=== PATIENT | male | born 1945 | race Caucasian/White ===

== ENCOUNTER 2017-09-15 14:50 | Emergency (ER) | payer OTHER ==
[2017-09-15 15:33] LABS: BASOPHILS % (AUTO) 0.9 % (0.0-5.0); EOSINOPHILS % (AUTO) 6.3 % (0.0-8.0); HEMATOCRIT 41.7 % (42-54); LYMPHOCYTES % (AUTO) 33.7 % (21.0-51.0); MEAN CORPUSCULAR HEMOGLOBIN 30.7 pg (27.0-33.0); MEAN CORPUSCULAR HGB CONC 33.9 g/dL (32.0-36.0); MEAN CORPUSCULAR VOLUME 90.7 fL (79-99); MONOCYTES % (AUTO) 7.6 % (3.0-13.0); NEUTROPHILS % (AUTO) 51.5 % (40.0-77.0); NUCLEATED RED BLOOD CELLS 0.1 % (0.0-0.19); PLATELET COUNT (AUTO) 177 K/uL (130-400); RED CELL DISTRIBUTION WIDTH 13.8 % (11.0-15.5); WHITE BLOOD COUNT (AUTO) 7.4 K/uL (4.8-10.8)
[2017-09-15 15:43] LABS: CARBON DIOXIDE 30 mmol/L (21-32); CHLORIDE 97 mmol/L (101-111); CREATININE 1.3 mg/dL (0.5-1.5); GLOMERULAR FILTR. RATE CALC 58 mL/min (>60); GLUCOSE,RANDOM 219 mg/dL (70-105); POTASSIUM 4.1 mmol/L (3.5-5.1); SODIUM SERUM 137 mmol/L (136-145); UREA NITROGEN, BLOOD 19 mg/dL (7-18)
[2017-09-15 15:44] LABS: INR 0.98 (0.85-1.15); PARTIAL THROMBOPLASTIN TIME 24.2 SEC (26.3-35.5); PROTHROMBIN TIME 10.3 SEC (9.6-11.6)
[2017-09-15 15:55] LABS: ALANINE AMINOTRANSFERASE 28 U/L (12-78); ALBUMIN 4.4 g/dL (3.5-5.0); ASPARTATE AMINOTRANSFERASE 16 U/L (10-37); BILIRUBIN,TOTAL 0.5 mg/dL (0.2-1.0); CREATINE KINASE MB < 0.5 ng/mL (0.5-3.6); CREATINE KINASE, TOTAL 55 U/L (21-232); LIPASE 187 U/L (114-286); TOTAL PROTEIN, SERUM 8.5 g/dL (6.0-8.3)
== END 2017-09-15 19:54 | disposition home or self-care (01) ==
LOC: EDH 14:50
DX: R10.9 Unspecified abdominal pain (principal); R32 Unspecified urinary incontinence; E11.9 Type 2 diabetes mellitus without complications; I10 Essential (primary) hypertension; H40.9 Unspecified glaucoma; E78.5 Hyperlipidemia, unspecified; J44.9 Chronic obstructive pulmonary disease, unspecified; Z88.8 Allergy status to other drugs, medicaments and biological substances
CPT/HCPCS: 36415; 74176; 80053; 82550; 82553; 83690; 84484; 85025; 85610; 85730; 93005

== ENCOUNTER 2017-10-18 04:16 | Emergency (ER) | payer OTHER ==
[2017-10-18 05:00] LABS: BASOPHILS % (AUTO) 0.9 % (0.0-5.0); EOSINOPHILS % (AUTO) 5.2 % (0.0-8.0); HEMATOCRIT 40.2 % (42-54); LYMPHOCYTES % (AUTO) 42.1 % (21.0-51.0); MEAN CORPUSCULAR HEMOGLOBIN 31.1 pg (27.0-33.0); MEAN CORPUSCULAR HGB CONC 34.2 g/dL (32.0-36.0); MONOCYTES % (AUTO) 9.9 % (3.0-13.0); NEUTROPHILS % (AUTO) 41.9 % (40.0-77.0); NUCLEATED RED BLOOD CELLS 0.1 % (0.0-0.19); PLATELET COUNT (AUTO) 172 K/uL (130-400); RED BLOOD CELL COUNT(AUTO) 4.41 MIL/uL (4.50-6.20); RED CELL DISTRIBUTION WIDTH 14.9 % (11.0-15.5); WHITE BLOOD COUNT (AUTO) 6.8 K/uL (4.8-10.8)
[2017-10-18 05:10] LABS: INR 0.99 (0.85-1.15); PARTIAL THROMBOPLASTIN TIME 25.9 SEC (26.3-35.5); PROTHROMBIN TIME 10.4 SEC (9.6-11.6)
[2017-10-18 05:12] LABS: CREATININE 1.2 mg/dL (0.5-1.5); POTASSIUM 4.2 mmol/L (3.5-5.1)
[2017-10-18 05:16] LABS: ALBUMIN 3.9 g/dL (3.5-5.0); BILIRUBIN,TOTAL 0.4 mg/dL (0.2-1.0); TOTAL PROTEIN, SERUM 7.4 g/dL (6.0-8.3)
== END 2017-10-18 07:40 | disposition home or self-care (01) ==
LOC: EDH 04:16
DX: I86.1 Scrotal varices (principal); J44.9 Chronic obstructive pulmonary disease, unspecified; E11.9 Type 2 diabetes mellitus without complications; E78.5 Hyperlipidemia, unspecified; I10 Essential (primary) hypertension; H40.9 Unspecified glaucoma; R79.1 Abnormal coagulation profile; Z88.8 Allergy status to other drugs, medicaments and biological substances
CPT/HCPCS: 36415; 80053; 85025; 85610; 85730

== ENCOUNTER 2018-05-17 19:41 | Emergency (ER) | payer OTHER ==
[2018-05-17 20:39] LABS: BASOPHILS % (AUTO) 0.2 % (0.0-5.0); HEMATOCRIT 44.3 % (42-54); LYMPHOCYTES % (AUTO) 7.5 % (21.0-51.0); MEAN CORPUSCULAR HEMOGLOBIN 30.4 pg (27.0-33.0); MEAN CORPUSCULAR HGB CONC 32.6 g/dL (32.0-36.0); MEAN CORPUSCULAR VOLUME 93.1 fL (79-99); MONOCYTES % (AUTO) 6.3 % (3.0-13.0); PLATELET COUNT (AUTO) 165 K/uL (130-400); RED BLOOD CELL COUNT(AUTO) 4.76 MIL/uL (4.50-6.20); RED CELL DISTRIBUTION WIDTH 14.1 % (11.0-15.5); WHITE BLOOD COUNT (AUTO) 8.9 K/uL (4.8-10.8)
[2018-05-17 20:52] LABS: CARBON DIOXIDE 26 mmol/L (21-32); CHLORIDE 104 mmol/L (101-111); CREATININE 1.9 mg/dL (0.5-1.5); GLOMERULAR FILTR. RATE CALC 37 mL/min (>60); GLUCOSE,RANDOM 187 mg/dL (70-105); POTASSIUM 5.1 mmol/L (3.5-5.1); SODIUM SERUM 141 mmol/L (136-145); UREA NITROGEN, BLOOD 30 mg/dL (7-18)
[2018-05-17 20:57] LABS: INR 1.04 (0.85-1.15); PARTIAL THROMBOPLASTIN TIME 29.2 SEC (26.3-35.5); PROTHROMBIN TIME 10.9 SEC (9.6-11.6)
[2018-05-17 21:03] LABS: BAND NEUTROPHILS % (MANUAL) 8 % (0-2); EOSINOPHILS % (MANUAL) 1 % (1-6); LYMPHOCYTES % (MANUAL) 10 % (22-44); MAN.DIFF COMMENT-IMPRESSION MANUAL DIFFERENTIAL; MONOCYTES % (MANUAL) 6 % (2-9); SEGMENTED NEUTROPHILS % 75 % (40-70)
[2018-05-17 21:18] LABS: ALANINE AMINOTRANSFERASE 34 U/L (12-78); ALBUMIN 3.9 g/dL (3.5-5.0); ASPARTATE AMINOTRANSFERASE 24 U/L (10-37); BILIRUBIN,TOTAL 0.6 mg/dL (0.2-1.0); MYOGLOBIN 2063 ng/mL (10-92); TROPONIN I < 0.04 ng/mL (0.00-0.06)
[2018-05-17 21:19] LABS: CREATINE KINASE, TOTAL 441 U/L (21-232)
== END 2018-05-18 00:14 | disposition home or self-care (01) ==
LOC: EDH 19:41
DX: A08.4 Viral intestinal infection, unspecified (principal); E86.0 Dehydration; R53.83 Other fatigue; J44.9 Chronic obstructive pulmonary disease, unspecified; E78.5 Hyperlipidemia, unspecified; I10 Essential (primary) hypertension; E07.9 Disorder of thyroid, unspecified; K21.9 Gastro-esophageal reflux disease without esophagitis; Z88.8 Allergy status to other drugs, medicaments and biological substances
CPT/HCPCS: 36415; 70450; 71045; 80053; 82550; 83605; 83874; 84484; 85025; 85610; 85730; 87040; 93005; 96360

== ENCOUNTER 2020-06-22 10:02 | Inpatient (IN) | payer MEDICARE, OTHER ==
[~2020-06-22] VITALS: Ht 182.9 cm; Wt 118.4 kg
[~2020-06-22 10:02] MED LIST: APIX5TAB PO; ASPI-556 PO; ATOR40TA71 PO; CYAN100099 PO; DONE10TA43 PO; DULO20CA18 PO; GLIP10TA9 PO; LEVO500T89 PO; LEVO88TA7 PO; LISI2.5T2 PO; MELA5TAB14 PO; METF-446 PO; MULT-84 PO; POTA-79 PO; TRAZ-185 PO
[2020-06-22] MEDS ORDERED: ACETAMINOPHEN 650 MG SUPPOSITORY RC ONE ×2 (10:33→15:29)
[2020-06-22] MEDS ORDERED: SODIUM CHLORIDE 0.9% 1000ML 2,000 ML IV ONE (10:34)
[2020-06-22] MEDS ORDERED: SODIUM CHLORIDE 0.9% 500ML 500 ML IV ONE (10:34)
[2020-06-22 10:58] LABS: ABG BASE EXCESS -2.1 mmol/L (-2.0-3.0); ABG HCO3 22.7 mmol/L (21.0-28.0); ABG OXYGEN SATURATION 99.1 % (95.0-99.0); ABG PCO2 39 mmHg (35-48)
[2020-06-22 11:11] LABS: APPEARANCE,URINE Clear (CLEAR); BILIRUBIN,URINE Negative (NEGATIVE); COLOR,URINE Yellow (YELLOW); GLUCOSE, URINE (UA) Negative (NEGATIVE); KETONES,URINE Negative (NEGATIVE); LEUKOCYTE ESTERASE ,URINE Moderate (NEGATIVE); NITRATE,URINE Negative (NEGATIVE); OCCULT BLOOD,URINE Small (NEGATIVE); PROTEIN,URINE Negative (NEGATIVE); UROBILINOGEN,URINE 0.2 mg/dL (0.2-1.0)
[2020-06-22 11:19] LABS: BASOPHILS % (AUTO) 0.3 % (0.0-5.0); EOSINOPHILS % (AUTO) 1.3 % (0.0-8.0); HEMATOCRIT 39.9 % (42-54); LYMPHOCYTES % (AUTO) 7.3 % (21.0-51.0); MEAN CORPUSCULAR HEMOGLOBIN 30.1 pg (27.0-33.0); MEAN CORPUSCULAR HGB CONC 32.3 g/dL (32.0-36.0); MEAN CORPUSCULAR VOLUME 93.2 fL (79-99); MONOCYTES % (AUTO) 8.2 % (3.0-13.0); NEUTROPHILS % (AUTO) 82.4 % (40.0-77.0); PLATELET COUNT (AUTO) 148 K/uL (130-400); RED BLOOD CELL COUNT(AUTO) 4.28 MIL/uL (4.50-6.20); RED CELL DISTRIBUTION WIDTH 13.3 % (11.0-15.5); WHITE BLOOD COUNT (AUTO) 15.4 K/uL (4.8-10.8)
[2020-06-22 11:23] LABS: CARBON DIOXIDE 27 mmol/L (21-32); CHLORIDE 105 mmol/L (101-111); CREATININE 1.4 mg/dL (0.5-1.5); GLOMERULAR FILTR. RATE CALC 53 mL/min (>60); GLUCOSE,RANDOM 98 mg/dL (70-105); POTASSIUM 4.3 mmol/L (3.5-5.1); SODIUM SERUM 142 mmol/L (136-145); UREA NITROGEN, BLOOD 27 mg/dL (7-18)
[2020-06-22 11:32] LABS: INR 1.12 (0.85-1.15); PARTIAL THROMBOPLASTIN TIME 23.1 SEC (26.3-35.5)
[2020-06-22 11:42] LABS: BACTERIA,URINE Few /HPF (None Seen); MUCUS,URINE Rare LPF (None Seen); SQUAMOUS EPITHELIAL CELL,UR Rare /HPF (0-2); WBC,URINE 26-50 /HPF (0-1)
[2020-06-22 11:44] LABS: ALANINE AMINOTRANSFERASE 30 U/L (12-78); ALBUMIN 4.1 g/dL (3.5-5.0); ASPARTATE AMINOTRANSFERASE 18 U/L (10-37); BILIRUBIN,TOTAL 0.6 mg/dL (0.2-1.0); CREATINE KINASE, TOTAL 69 U/L (21-232); MYOGLOBIN 58 ng/mL (10-92); TOTAL PROTEIN, SERUM 7.5 g/dL (6.0-8.3); TROPONIN I < 0.04 ng/mL (0.00-0.06)
[2020-06-22] MEDS ORDERED: CEFTRIAXONE SODIUM 2 GM VIAL ONE (12:13)
[2020-06-22] MEDS ORDERED: SODIUM CHLORIDE 0.9% 50 ML IV ONE (12:14)
[2020-06-22] MEDS ORDERED: ACETAMINOPHEN 325 MG TAB PO PRN (12:45)
[2020-06-22] MEDS ORDERED: CEFTRIAXONE SODIUM 1 GM IVP SCH (12:45)
[2020-06-22] MEDS ORDERED: HEPARIN SODIUM 5000UNIT/ML 1ML VIAL ONE (14:16)
[2020-06-22] MEDS ORDERED: ACETAMINOPHEN 650 MG SUPPOSITORY RC PRN (14:45)
[2020-06-22] MEDS ORDERED: GLUCAGON 1MG KIT 1 MG ML IM PRN (14:45)
[2020-06-22] MEDS ORDERED: DEXTROSE 50%-WATER 50 ML DISP.SYRIN IV PRN (14:45)
--- NOTE | 2020-06-22 16:20 | NUR ---
ARRIVED TOO FLOOR PT ARRIVED TO TELE. PT ANXIOUS AND NOT FOLLOWING COMMANDS. UNABLE TO VERBALIZE AT THE MOMENT. TEMPERATURE OF 101 NOTED AND JARRED TINEO NOTIFIED. NEXT OF KIN, JARRED SLATER, REPEATEDLY TRIED TO CONTACT. UNABLE TO GET A HOLD OF HER. WILL CONTINUE TO TRY. CONSULTS CALLED.
[2020-06-22] MEDS: SODIUM CHLORIDE 0.9% 1000ML 1,000 ML IV SCH (16:25)
[2020-06-22] MEDS: HEPARIN SODIUM 5000UNIT/ML 1ML VIAL SQ SCH ×2 (16:25→20:46)
[2020-06-22 16:30] VITALS: BP 109/62
[2020-06-22] MEDS: INSULIN HUMULIN R 100 UNIT/ML 3ML SQ SCH ×2 (16:30→20:46)
--- NOTE | 2020-06-22 18:04 | NUR ---
NEXT OF KIN JARRED SLATER CONTACTED AND UPDATED ON PT CONDITION. WILL FAX OVER HOME MEDS. PT RESIDENT OF [facility].
[2020-06-22] MEDS ORDERED: MELA1TAB28 PO (19:25)
[2020-06-22] MEDS ORDERED: CARB-37 PO (19:30)
[2020-06-22] MEDS ORDERED: ROPI1TAB13 PO (19:31)
[2020-06-22 20:09] VITALS: BP 127/81
[2020-06-22] MEDS ORDERED: TAMSULOSIN HCL 0.4 MG CAP.ER.24H PO SCH (21:00)
[2020-06-22 23:44] VITALS: BP 104/66
[2020-06-23] MEDS: SODIUM CHLORIDE 0.9% 1000ML 1,000 ML IV SCH (03:34)
[2020-06-23 03:43] VITALS: BP 149/90
[2020-06-23] MEDS: HEPARIN SODIUM 5000UNIT/ML 1ML VIAL SQ SCH ×3 (05:01→20:12)
[2020-06-23 05:17] LABS: BASOPHILS % (AUTO) 0.3 % (0.0-5.0); EOSINOPHILS % (AUTO) 0.1 % (0.0-8.0); HEMATOCRIT 35.2 % (42-54); LYMPHOCYTES % (AUTO) 12.8 % (21.0-51.0); MEAN CORPUSCULAR HEMOGLOBIN 30.5 pg (27.0-33.0); MEAN CORPUSCULAR HGB CONC 32.4 g/dL (32.0-36.0); MEAN CORPUSCULAR VOLUME 94.1 fL (79-99); MONOCYTES % (AUTO) 6.7 % (3.0-13.0); NEUTROPHILS % (AUTO) 79.8 % (40.0-77.0); PLATELET COUNT (AUTO) 125 K/uL (130-400); RED BLOOD CELL COUNT(AUTO) 3.74 MIL/uL (4.50-6.20); RED CELL DISTRIBUTION WIDTH 13.6 % (11.0-15.5); WHITE BLOOD COUNT (AUTO) 11.6 K/uL (4.8-10.8)
[2020-06-23] MEDS: INSULIN HUMULIN R 100 UNIT/ML 3ML SQ SCH ×4 (05:26→20:12)
[2020-06-23 05:34] LABS: ALBUMIN 3.4 g/dL (3.5-5.0); BILIRUBIN,TOTAL 0.6 mg/dL (0.2-1.0); CREATININE 1.4 mg/dL (0.5-1.5); TOTAL PROTEIN, SERUM 7.3 g/dL (6.0-8.3)
[2020-06-23 08:00] VITALS: BP 133/71
[2020-06-23] MEDS ORDERED: ZOLPIDEM TARTRATE 5 MG TAB PO PRN (08:15)
[2020-06-23] MEDS: FAMOTIDINE/PF 20 MG/2 ML VIAL IV SCH (09:18)
[2020-06-23] MEDS ORDERED: PROMETHAZINE HCL 25 MG/ML 1ML AMPULE IM PRN (11:15)
[2020-06-23] MEDS ORDERED: MORPHINE SULFATE 2 MG/ML 1ML SYG ONE (11:35)
[2020-06-23] MEDS: ONDANSETRON HCL 4 MG/2 ML VIAL IVP PRN (11:38)
[2020-06-23 12:16] VITALS: BP 97/57
[2020-06-23] MEDS: ZOSYN 3.375GM+NS 50ML 50 ML IV SCH ×2 (12:21→20:13)
--- NOTE | 2020-06-23 13:10 | NUR ---
DYSPHAGIA EVAL COMPLETED. -S/S OF ASPIRATION. RECOMMEND MECHANICAL SOFT/CHOPPED, THIN LIQUIDS; PILLS WHOLE WITH LIQUIDS. ULTRASOUND SUPERVISOR CALLED [facility] MAYELIN X3 AT [phone] WITH NO ANSWER AND UNABLE TO LEAVE MESSAGE VOICEMAIL IS FULL. ULTRASOUND SUPERVISOR LOOKED FOR NUMBER ONLINE-SAME NUMBER. ULTRASOUND SUPERVISOR COORDINATED CARE WITH NURSE TERESA. Addendum: 06/23/20 at 1312 by KHADAR BURRELL [facility] Amended: Links added.
[2020-06-23 16:00] VITALS: BP 162/71
--- NOTE | 2020-06-23 16:59 | NUR ---
IA NOT DONE. Phone number listed goes straight to voice mail.
[2020-06-23 19:57] VITALS: BP 108/63
[2020-06-23] MEDS: MORPHINE SULFATE 2 MG/ML 1ML SYG IVP PRN (20:14)
[2020-06-23 23:49] VITALS: BP 90/62
[2020-06-24] MEDS ORDERED: TAMSULOSIN HCL 0.4 MG CAP.ER.24H PO SCH (04:00)
[2020-06-24 04:07] VITALS: BP 111/54
[2020-06-24] MEDS: SODIUM CHLORIDE 0.9% 1000ML 1,000 ML IV SCH (04:45)
[2020-06-24] MEDS: ZOSYN 3.375GM+NS 50ML 50 ML IV SCH ×3 (05:12→20:37)
[2020-06-24] MEDS: HEPARIN SODIUM 5000UNIT/ML 1ML VIAL SQ SCH ×3 (05:12→20:40)
[2020-06-24] MEDS: MORPHINE SULFATE 2 MG/ML 1ML SYG IVP PRN (05:13)
[2020-06-24] MEDS: INSULIN HUMULIN R 100 UNIT/ML 3ML SQ SCH ×4 (06:49→20:37)
[2020-06-24 06:57] LABS: BASOPHILS % (AUTO) 0.7 % (0.0-5.0); EOSINOPHILS % (AUTO) 3.9 % (0.0-8.0); HEMATOCRIT 34.3 % (42-54); LYMPHOCYTES % (AUTO) 26.1 % (21.0-51.0); MEAN CORPUSCULAR HEMOGLOBIN 30.2 pg (27.0-33.0); MEAN CORPUSCULAR HGB CONC 31.2 g/dL (32.0-36.0); MEAN CORPUSCULAR VOLUME 96.9 fL (79-99); MONOCYTES % (AUTO) 13.2 % (3.0-13.0); NEUTROPHILS % (AUTO) 55.8 % (40.0-77.0); PLATELET COUNT (AUTO) 103 K/uL (130-400); RED BLOOD CELL COUNT(AUTO) 3.54 MIL/uL (4.50-6.20); RED CELL DISTRIBUTION WIDTH 13.7 % (11.0-15.5); WHITE BLOOD COUNT (AUTO) 7.2 K/uL (4.8-10.8)
[2020-06-24 07:22] LABS: ALBUMIN 3.2 g/dL (3.5-5.0); BILIRUBIN,TOTAL 0.5 mg/dL (0.2-1.0); CREATININE 1.4 mg/dL (0.5-1.5); POTASSIUM 4.4 mmol/L (3.5-5.1); TOTAL PROTEIN, SERUM 7.1 g/dL (6.0-8.3)
[2020-06-24] MEDS: FAMOTIDINE/PF 20 MG/2 ML VIAL IV SCH (09:27)
[2020-06-24] MEDS: TAMSULOSIN HCL 0.4 MG CAP.ER.24H PO SCH (09:27)
[2020-06-24 09:34] VITALS: BP 121/65
[2020-06-24] MEDS ORDERED: DULO60CA64 PO (11:51)
[2020-06-24] MEDS ORDERED: ATOR10 PO ×2 (11:52→11:59)
[2020-06-24] MEDS ORDERED: VITA1CAP85 PO (11:54)
[2020-06-24] MEDS ORDERED: POTA-9 PO (11:57)
[2020-06-24] MEDS ORDERED: QUET25TA PO (11:58)
[2020-06-24 13:01] VITALS: BP 120/66
--- NOTE | 2020-06-24 15:26 | NUR ---
CHRIS WHIPPLE/IA MET WITH PATIENT AND FRIEND, JARRED FOUNTAIN, AT BEDSIDE. PER JARRED, SHE IS FRIEND AND ALSO MEDICAL INFORMATION OFFICER OF [facility] WHERE PATIENT RESIDES. PER JARRED, PATIENT HAS HOSPITAL BED AND WHEELCHAIR AND NEEDS ASSISTANCE WITH ADLS. PATIENT DC PLAN IS ASSISTIVE LIVING AT PREVIOUS HOME. Addendum: 06/24/20 at 1529 by JO-ANN PRATT RN CM Amended: Links added.
[2020-06-24 16:00] VITALS: BP 116/52
--- NOTE | 2020-06-24 16:29 | NUR ---
RD NOTIFICATION Pt admitted with metabolic encephalopathy, UTI. Hx of Parkinson's. Pt is s/p ST evaluation, mechanical soft/chopped diet modification recommended. Pt tolerating 75gm CC modified diet with no report of GI distress and fair PO intake. Pt requires some feeding assistance. Recommend continue current diet order Recommend Glucerna QD Recommend to monitor renal status RD to continue to monitor. Please notify as additional nutrition concerns arise. Thank you.
[2020-06-24 20:34] VITALS: BP_SYST 119; BP_SYST 131; BP_DIAS 52; BP_DIAS 84
[2020-06-25] VITALS (7 sets, daily range): BP systolic 107–144; BP diastolic 56–77
[2020-06-25] MEDS: SODIUM CHLORIDE 0.9% 1000ML 1,000 ML IV SCH ×2 (00:18→20:40)
[2020-06-25] MEDS: HEPARIN SODIUM 5000UNIT/ML 1ML VIAL SQ SCH ×3 (04:29→21:21)
[2020-06-25] MEDS: ZOSYN 3.375GM+NS 50ML 50 ML IV SCH (04:32)
[2020-06-25] MEDS: INSULIN HUMULIN R 100 UNIT/ML 3ML SQ SCH ×4 (06:27→20:17)
[2020-06-25] MEDS: FAMOTIDINE/PF 20 MG/2 ML VIAL IV SCH ×3 (08:37→20:39)
[2020-06-25] MEDS: ONDANSETRON HCL 4 MG/2 ML VIAL IVP PRN (08:38)
[2020-06-25] MEDS: TAMSULOSIN HCL 0.4 MG CAP.ER.24H PO SCH (08:38)
[2020-06-25] MEDS ORDERED: BISACODYL 10 MG SUPP.RECT RC SCH (12:30)
[2020-06-25 12:59] LABS: HEMATOCRIT 39.1 % (42-54); MEAN CORPUSCULAR HEMOGLOBIN 30.3 pg (27.0-33.0); MEAN CORPUSCULAR VOLUME 94.7 fL (79-99); PLATELET COUNT (AUTO) 131 K/uL (130-400); RED BLOOD CELL COUNT(AUTO) 4.13 MIL/uL (4.50-6.20); RED CELL DISTRIBUTION WIDTH 13.4 % (11.0-15.5); WHITE BLOOD COUNT (AUTO) 6.2 K/uL (4.8-10.8)
[2020-06-25 13:22] LABS: ALBUMIN 3.8 g/dL (3.5-5.0); BILIRUBIN,TOTAL 0.5 mg/dL (0.2-1.0); CREATININE 1.3 mg/dL (0.5-1.5); POTASSIUM 4.3 mmol/L (3.5-5.1); TOTAL PROTEIN, SERUM 8.4 g/dL (6.0-8.3)
[2020-06-25 14:18] LABS: EOSINOPHILS % (MANUAL) 3 % (1-6); LYMPHOCYTES % (MANUAL) 32 % (22-44); MAN.DIFF COMMENT-IMPRESSION MANUAL DIFFERENTIAL; MONOCYTES % (MANUAL) 3 % (2-9); SEGMENTED NEUTROPHILS % 62 % (40-70)
[2020-06-25 14:20] LABS: PLATELET MORPHOLOGY COMMENT ADEQUATE
[2020-06-25] MEDS: AMPICILLIN 2GM+NS 100ML 100 ML IV SCH ×2 (14:31→20:40)
--- NOTE | 2020-06-25 15:11 | NUR ---
FOLLOW UP. Pt CURRENTLY NPO SECONDARY TO VOMITING THIS AM AFTER BREAKFAST. NO FOOD OR LIQUIDS PROVIDED AT THIS TIME. DIRECTOR OF CONTRACTS WILL FOLLOW UP WITH PATIENT. Addendum: 06/25/20 at 1516 by KHADAR BURRELL, [facility] Amended: Links added.
[2020-06-25] MEDS: SIMETHICONE 80 MG TAB.CHEW PO SCH (20:40)
--- NOTE | 2020-06-26 03:19 | NUR ---
REFUSED LABS PATIENT REFUSED TO HAVE AM LABS DRAWN AT THIS TIME. STATED "IF DOCTOR WANTS BLOOD HE CAN COME DRAW ME". EXPLAINED TO PATIENT IMPORTANCE OF MORNING LABS, PATIENT STILL REFUSED.
[2020-06-26 04:01] VITALS: BP 139/71
[2020-06-26] MEDS: AMPICILLIN 2GM+NS 100ML 100 ML IV SCH ×5 (05:04→23:56)
[2020-06-26] MEDS: HEPARIN SODIUM 5000UNIT/ML 1ML VIAL SQ SCH ×3 (05:09→20:09)
[2020-06-26] MEDS: INSULIN HUMULIN R 100 UNIT/ML 3ML SQ SCH ×4 (06:33→21:00)
[2020-06-26 08:00] VITALS: BP 140/68
[2020-06-26] MEDS ORDERED: POTASSIUM CHLORIDE 10% ELIXIR 20 MEQ/15 ML UDCUP PO PRN (08:15)
[2020-06-26] MEDS: SIMETHICONE 80 MG TAB.CHEW PO SCH ×3 (08:17→20:07)
[2020-06-26] MEDS: FAMOTIDINE/PF 20 MG/2 ML VIAL IV SCH (08:17)
[2020-06-26] MEDS: TAMSULOSIN HCL 0.4 MG CAP.ER.24H PO SCH (08:17)
[2020-06-26] MEDS: FAMOTIDINE 20MG TAB 20 MG TAB PO SCH ×2 (09:00→20:07)
[2020-06-26 12:03] VITALS: BP 134/66
--- NOTE | 2020-06-26 15:47 | NUR ---
CM NOTE/ELHAM MET WITH PATIENT IN ROOM. INFORMED PATIENT OF ORDER FOR [facility]. RAD COMPLETED FOR ELHAM. CONVERSATION WENT ON, PATIENT STARTED CRYING AND STATED HE DID NOT WANT TO GO BACK TO HIS SENIOR LIVING, [facility]. 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 NOTED LONG VILLAVICENCIO AND HAIR ON PATIENT. PATIENT CRYING AND STATING HE FEEL LIKE PEOPLE DON'T LISTEN TO HIM AND DONT EXPLAIN CARE FOR HIM D/T HIS DIAGNOSIS AND FORGETFULLNESS. INFORMED CINDER CRANE OPERATOR, VERNA GAR, ABOUT CONCERNS. ORDER FOR MUSHROOM CUTTER PLACED TO ASSESS HOME ENVIRONMENT. CM TO FOLLOW UP FOR [facility] REFERRAL.
[2020-06-26 16:00] VITALS: BP 125/63
--- NOTE | 2020-06-26 16:30 | NUR ---
NED visited pt's room, pt. gone to procedure; unable to meet w/pt. SW will request weekend CM f/u.
[2020-06-26 20:00] VITALS: BP 131/69
--- NOTE | 2020-06-26 21:47 | NUR ---
patient keeps taking off his quality assurance monitor chassis and refuses his medications including heparin. he also refuses blood sugar checks and vital signs. i tried contacting [facility] Claire Young at [phone]. i could not reach anybody from the [facility]. i called raj sharma to let him know. he ordered to discontinue quality assurance monitor chassis.
[2020-06-26] MEDS: SODIUM CHLORIDE 0.9% 1000ML 1,000 ML IV SCH (23:56)
[2020-06-27] VITALS: BP 142/69
[2020-06-27] MEDS: HEPARIN SODIUM 5000UNIT/ML 1ML VIAL SQ SCH ×5 (03:04→19:51)
[2020-06-27 04:00] VITALS: BP 137/77
[2020-06-27] MEDS: AMPICILLIN 2GM+NS 100ML 100 ML IV SCH ×6 (04:33→23:20)
--- NOTE | 2020-06-27 04:35 | NUR ---
PATIENT REFUSED MORNING LAB DRAW ALONG WITH HIS OTHER MEDICATIONS.
[2020-06-27] MEDS: INSULIN HUMULIN R 100 UNIT/ML 3ML SQ SCH ×5 (05:21→18:54)
[2020-06-27 08:13] VITALS: BP 128/63
--- NOTE | 2020-06-27 09:00 | NUR ---
IV PT ACCIDENTALLY PULLED OUT IV WHILE SLEEPING. CATHETER TIP INTACT. PT REFUSING TO HAVE ANOTHER IV INSERTED. EXPLAINED TO PT NEED FOR IV ACCESS. PT ON IV ABX Q6H. PT CONTINUES TO HAVE IV INSERTED. MD TO BE NOTIFIED. WHILE REFUSING IV, PT STATES, "YOU ARE ALL LYING TO ME. I JUST WANT TO GO HOME, TO [facility]."
[2020-06-27] MEDS: FAMOTIDINE 20MG TAB 20 MG TAB PO SCH ×2 (09:38→18:53)
[2020-06-27] MEDS: SIMETHICONE 80 MG TAB.CHEW PO SCH ×3 (09:38→18:53)
[2020-06-27] MEDS: TAMSULOSIN HCL 0.4 MG CAP.ER.24H PO SCH (09:38)
[2020-06-27 12:00] VITALS: BP 132/70
[2020-06-27] MEDS: SODIUM CHLORIDE 0.9% 1000ML 1,000 ML IV SCH ×2 (12:28→18:54)
[2020-06-27 16:14] VITALS: BP 120/68
--- NOTE | 2020-06-27 19:00 | NUR ---
spoke with antwan cuello [facility] on the phone. she asked me about the patient (if the patient had an IV, isolation, 1:1 observer, antibiotics, picc line, etc). I explained the situation and she verbalized understanding.
[2020-06-27 20:46] VITALS: BP 133/69
[2020-06-28] VITALS (7 sets, daily range): BP systolic 127–143; BP diastolic 63–73
--- NOTE | 2020-06-28 00:37 | NUR ---
patient continues to refuse his medications. he pulled out his IV catheter in the day. however, he allowed me to place another iv catheter at 20:00. he refuses blood sugar checks, lab draws, and some medications. he continues to say that he does not want to go to [facility]. he would like to go back to [facility] home. i spoke with antwan, from [facility], and told her.
[2020-06-28] MEDS: HEPARIN SODIUM 5000UNIT/ML 1ML VIAL SQ SCH ×3 (04:01→19:56)
[2020-06-28] MEDS: AMPICILLIN 2GM+NS 100ML 100 ML IV SCH ×4 (04:22→23:40)
[2020-06-28] MEDS: MORPHINE SULFATE 2 MG/ML 1ML SYG IVP PRN (04:27)
[2020-06-28] MEDS: SODIUM CHLORIDE 0.9% 1000ML 1,000 ML IV SCH (05:26)
[2020-06-28] MEDS: SIMETHICONE 80 MG TAB.CHEW PO SCH ×3 (08:40→19:55)
[2020-06-28] MEDS: FAMOTIDINE 20MG TAB 20 MG TAB PO SCH ×2 (08:41→19:56)
[2020-06-28] MEDS: TAMSULOSIN HCL 0.4 MG CAP.ER.24H PO SCH (08:41)
--- NOTE | 2020-06-28 08:45 | NUR ---
AM ASSESSMENT PT LAYING IN BED, RESTING. A/O 2-3; FORGETFUL @ TIMES. SOB ON EXERTION. NO DISTRESS NOTED. DENIES CHEST PAIN OR DISCOMFORT. DENIES PALPITATIONS. DENIES N/V AND/OR DIARRHEA. 18 FR FC PATENT & DRAINING. BLE EDEMA. BEDREST. INSTRUCTED TO CALL FOR ASSISTANCE. CALL CHICHO W/IN REACH.
--- NOTE | 2020-06-28 10:37 | NUR ---
MD VISIT DR ARGUELLO IN TO SEE PT. EXPLAINED TO PT NEED TO BE TRANSFERRED TO [facility], IV ABX THERAPY NEEDED, & CURRENT URINE & BLOOD INFECTIONS. QUESTIONS ENCOURAGED & CLARIFIED BY MD.
[2020-06-28] MEDS: INSULIN HUMULIN R 100 UNIT/ML 3ML SQ SCH ×3 (11:30→21:00)
[2020-06-29 04:00] VITALS: BP 136/63
[2020-06-29] MEDS: HEPARIN SODIUM 5000UNIT/ML 1ML VIAL SQ SCH ×3 (04:09→19:35)
[2020-06-29] MEDS: AMPICILLIN 2GM+NS 100ML 100 ML IV SCH ×4 (05:36→23:31)
[2020-06-29] MEDS: INSULIN HUMULIN R 100 UNIT/ML 3ML SQ SCH ×4 (05:46→21:00)
[2020-06-29] MEDS: FAMOTIDINE 20MG TAB 20 MG TAB PO SCH ×2 (08:10→21:50)
[2020-06-29] MEDS: TAMSULOSIN HCL 0.4 MG CAP.ER.24H PO SCH (08:10)
[2020-06-29] MEDS: SIMETHICONE 80 MG TAB.CHEW PO SCH ×3 (08:11→21:50)
[2020-06-29 08:33] VITALS: BP 141/74
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
[2020-06-29 11:15] VITALS: BP 145/64
--- NOTE | 2020-06-29 13:35 | NUR ---
FOLLOW UP COMPLETED. Pt CURRENTLY TOLERATING MECHANICAL SOFT/CHOPPED,THIN LIQUIDS; PILLS WHOLE WITH LIQUIDS WITH NO OVERT S/S OF ASPIRATION. Pt REQUIRES ASSISTANCE DURING FEEDING SECONDARY TO SHAKING DUR TO PARKINSON'S DISEASE. APPLICATION SPEC COORDINATED WITH NURSE COOPER AT THIS TIME. Addendum: 06/29/20 at 1337 by KHADAR BURRELL, [facility] ST Amended: Links added.
[2020-06-29 14:36] LABS: INR 1.03 (0.85-1.15); PROTHROMBIN TIME 11.1 SEC (9.6-11.6)
[2020-06-29 14:57] LABS: CREATININE 1.2 mg/dL (0.5-1.5); POTASSIUM 3.5 mmol/L (3.5-5.1)
--- NOTE | 2020-06-29 16:46 | NUR ---
DISCHARGE PLANNING- CHANGES REQUEST SANDRITA HUTTON TO EXPEDITE DISCHARGE AND RE EVAL SUITABILITY FOR [facility]. SPOKE TO FERTILIZER LOADER JARRED AT [facility], EXPLAINED PATIENT NEED 3 WEEKS TOTAL ABX FOR BACTEREMIA AND UTI; PER DR. Roca IN AGREEMENT WITH SAME. ALSO PROVIDED NUMBER FOR VLADISLAV BARROW MUSER; CM CALLED. NO ANSWER -PENDING RETURN CALL. PATIENT WAS AAOX3 AND AGREED TO PLACEMENT AT [place] FOR ABX. PENDING PICC. NO CONSENT FOR PICC EARLIER FROM PATIENT NO PT EVAL- NEED OK FOR PT EVAL. ALSO REFERRAL PKT SENT WILL FOLOW UP IN AM Addendum: 06/29/20 at 1653 by CURT BAEZ RN CM Amended: Links added.
[2020-06-29 16:55] VITALS: BP 112/59
--- NOTE | 2020-06-29 17:00 | NUR ---
PT REFUSED COVID TESTING. THE PT IS VERY AGITATED AND REFUSING COVID TESTING EVEN AFTER BEING EDUCATED ON THE REASON FOR IT.
--- NOTE | 2020-06-29 19:30 | NUR ---
PATIENT IN BED, AAOX3, NO ACUTE DISTRESS NOTED. PT TO HAVE PICC LINE PLACED THIS EVENING.
--- NOTE | 2020-06-29 19:45 | NUR ---
PATIENT REFUSED PM GLUCOMETER CHECK.
[2020-06-29 20:00] VITALS: BP 133/69
--- NOTE | 2020-06-29 21:37 | NUR ---
PICC LINE NURSE CONTINUES TO WORK WITH PATIENT.
[2020-06-29] MEDS ORDERED: LIDOCAINE HCL-MPF 1% 2ML VIAL IV PRN (22:15)
[2020-06-29] MEDS ORDERED: POTASSIUM CHLORIDE 20MEQ/100ML 100 ML IV PRN (22:15)
[2020-06-29] MEDS ORDERED: POTASSIUM CHLORIDE 20 MEQ ERTAB PO PRN (22:15)
[2020-06-29] MEDS ORDERED: POTASSIUM CHLORIDE 20 MEQ ERTAB PO ONE (23:30)
[2020-06-30] VITALS: BP 133/59
[2020-06-30] MEDS: SODIUM CHLORIDE 0.9% 1000ML 1,000 ML IV SCH (00:45)
[2020-06-30 04:00] VITALS: BP 133/68
--- NOTE | 2020-06-30 04:34 | NUR ---
PATIENT REFUSED LAB DRAW FROM PICC LINE. I EXPLAINED TO PATIENT THAT BLOOD WORK MAY BE COLLECTED VIA PICC LINE YET HE CONTINUED TO REFUSE. HE WAS TOLD EARLIER THAT BLOOD PRESSURE MONITORING IS NOT ALLOWED TO RIGHT ARM. PATIENT RAISED HIS VOICE AND DID NOT ALLOW FOR BLOOD DRAW VIA PICC LINE OR VENIPUNCTURE.
[2020-06-30] MEDS: HEPARIN SODIUM 5000UNIT/ML 1ML VIAL SQ SCH ×2 (04:41→13:11)
[2020-06-30] MEDS: AMPICILLIN 2GM+NS 100ML 100 ML IV SCH ×3 (05:19→18:48)
[2020-06-30] MEDS: INSULIN HUMULIN R 100 UNIT/ML 3ML SQ SCH ×3 (05:19→16:30)
[2020-06-30 08:30] VITALS: BP 142/84
[2020-06-30] MEDS: SIMETHICONE 80 MG TAB.CHEW PO SCH ×2 (09:01→14:00)
[2020-06-30] MEDS: TAMSULOSIN HCL 0.4 MG CAP.ER.24H PO SCH (09:01)
[2020-06-30] MEDS: FAMOTIDINE 20MG TAB 20 MG TAB PO SCH (09:01)
[2020-06-30 12:13] VITALS: BP 132/62
--- NOTE | 2020-06-30 12:50 | NUR ---
Bettied call BACK from VLADISLAV Veliz,(CALLED YESTERDAY ) Explained dcp to grecia mccollum, possible today, and that his name will appear on the passr as the contact. Explained patient able to make his own decisionS at this this point. Addendum: 06/30/20 at 1253 by CURT BAEZ RN CM Amended: Links added.
--- NOTE | 2020-06-30 15:55 | NUR ---
RD FOLLOW UP Pt continues to tolerate Heart healthy, 75gm CC diet order with no report of GI distress, Fair PO intake at 75-100%. Pt with elevated BG levels. Mild Fluid retention. Monitored labs: BUN 19, BG 203. PICC line placed. Contact isolation in place. Recommend 60gm diet modification due to elevated BG Recommend to monitor fluid status d/t Mild Fluid retention (BLE 2+ Pitting Edema) RD to continue to monitor. Addendum: 06/30/20 at [address] Amended: Links added.
[2020-06-30 17:33] VITALS: BP 146/71
[2020-06-30 19:30] VITALS: BP 138/70
== END 2020-06-30 19:10 | DRG 871 ==
LOC: EDH 10:02 → EDHIP 12:34 → 4DH 16:30
PROVIDERS: ADMIT Hospitalist; ATTEND Hospitalist
PROC: 05HY33Z Insertion of Infusion Device into Upper Vein, Percutaneous Approach (ICD-10-PCS; principal; 2020-06-29)
DX: A41.81 Sepsis due to Enterococcus (principal); J96.01 Acute respiratory failure with hypoxia; G93.41 Metabolic encephalopathy; N39.0 Urinary tract infection, site not specified; N17.9 Acute kidney failure, unspecified; E46 Unspecified protein-calorie malnutrition; I13.0 Hypertensive heart and chronic kidney disease with heart failure and stage 1 through stage 4 chronic kidney disease, or unspecified chronic kidney disease; I50.32 Chronic diastolic (congestive) heart failure; I82.412 Acute embolism and thrombosis of left femoral vein; N13.8 Other obstructive and reflux uropathy; F32.9 Major depressive disorder, single episode, unspecified; D64.9 Anemia, unspecified; E03.9 Hypothyroidism, unspecified; E11.22 Type 2 diabetes mellitus with diabetic chronic kidney disease; E66.9 Obesity, unspecified; G20 Parkinson's disease; I25.10 Atherosclerotic heart disease of native coronary artery without angina pectoris; K59.00 Constipation, unspecified; B95.5 Unspecified streptococcus as the cause of diseases classified elsewhere; Z20.828 Contact with and (suspected) exposure to other viral communicable diseases; N41.9 Inflammatory disease of prostate, unspecified; R53.81 Other malaise; N18.9 Chronic kidney disease, unspecified; N20.0 Calculus of kidney; N40.1 Benign prostatic hyperplasia with lower urinary tract symptoms; Z68.35 Body mass index [BMI] 35.0-35.9, adult; I25.2 Old myocardial infarction; Z74.01 Bed confinement status; Z99.3 Dependence on wheelchair; Z86.711 Personal history of pulmonary embolism; Z95.828 Presence of other vascular implants and grafts; Z86.73 Personal history of transient ischemic attack (TIA), and cerebral infarction without residual deficits; Z83.3 Family history of diabetes mellitus; Z82.5 Family history of asthma and other chronic lower respiratory diseases
CPT/HCPCS: 36415; 36600; 71045; 74018; 76770; 78582; 80048; 80053; 81001; 82550; 82728; 82803; 82948; 83605; 83874; 83880; 84145; 84484; 85025; 85378; 85610; 85730; 86900; 86901; 87040; 87077; 87088; 87186; 87426; 87804; 92610; 93005; 93306; 93356; 93970; 97039; A4344; A9540; A9558; C1894; G0378; J0290; J0696; J1644; J1815; J2405; J2543; J3490; J7030; J7040; U0003

== ENCOUNTER 2021-06-02 11:51 | Emergency (ER) | payer MEDICARE, OTHER ==
[~2021-06-02] VITALS: Ht 185.4 cm; Wt 106.6 kg
[~2021-06-02 11:51] MED LIST changes: +ASPI-1197 PO; -ASPI-556 PO; +BUSP10TA3 PO; +CARB1TAB33 PO; -CYAN100099 PO; +DONE10TA36 PO; -DONE10TA43 PO; -DULO20CA18 PO; +DULO60CA64 PO; -GLIP10TA9 PO; +GLIP5TAB11 PO; +KETO5DRO6 OP; -LEVO500T89 PO; +LEVO88CA4 PO; -LEVO88TA7 PO; +LISI-809 PO; -LISI2.5T2 PO; +MELA3TAB41 PO; -MELA5TAB14 PO; -MULT-84 PO; +QUET50TA24 PO; +ROPI1TAB13 PO; -TRAZ-185 PO; +TRAZ-187 PO; +VIT1CAPS47 PO; +VITA1CAP85 PO
[2021-06-02 12:28] LABS: BASOPHILS % (AUTO) 0.7 % (0.0-5.0); HEMATOCRIT 40.6 % (42-54); LYMPHOCYTES % (AUTO) 25.3 % (21.0-51.0); MEAN CORPUSCULAR HEMOGLOBIN 30.5 pg (27.0-33.0); MEAN CORPUSCULAR HGB CONC 32.8 g/dL (32.0-36.0); MEAN CORPUSCULAR VOLUME 93.1 fL (79-99); MONOCYTES % (AUTO) 9.9 % (3.0-13.0); NEUTROPHILS % (AUTO) 59.8 % (40.0-77.0); PLATELET COUNT (AUTO) 181 K/uL (130-400); RED BLOOD CELL COUNT(AUTO) 4.36 MIL/uL (4.50-6.20); RED CELL DISTRIBUTION WIDTH 13.1 % (11.0-15.5); WHITE BLOOD COUNT (AUTO) 7.2 K/uL (4.8-10.8)
[2021-06-02 12:40] LABS: CREATININE 1.5 mg/dL (0.5-1.5); POTASSIUM 5.1 mmol/L (3.5-5.1)
[2021-06-02 12:44] LABS: ALBUMIN 4.1 g/dL (3.5-5.0); BILIRUBIN,TOTAL 0.4 mg/dL (0.2-1.0); TOTAL PROTEIN, SERUM 8.4 g/dL (6.0-8.3)
[2021-06-02 12:59] LABS: ALCOHOL, BLOOD < 3 mg/dL (0-10); CREATINE KINASE, TOTAL 61 U/L (21-232)
[2021-06-02 13:10] LABS: ACETAMINOPHEN < 1 mcg/mL (10-29); SALICYLATE < 2.8 mg/dL (2.8-20.0)
[2021-06-02] MEDS ORDERED: ALPRAZOLAM 0.25 MG TABLET PO SCH (14:24)
[2021-06-02 14:32] LABS: APPEARANCE,URINE Clear (CLEAR); BILIRUBIN,URINE Negative (NEGATIVE); COLOR,URINE Yellow (YELLOW); GLUCOSE, URINE (UA) >=1000 mg/dL (NEGATIVE); KETONES,URINE Negative (NEGATIVE); LEUKOCYTE ESTERASE ,URINE Negative (NEGATIVE); NITRATE,URINE Negative (NEGATIVE); OCCULT BLOOD,URINE Small (NEGATIVE); PROTEIN,URINE Negative (NEGATIVE); UROBILINOGEN,URINE 0.2 mg/dL (0.2-1.0)
[2021-06-02 14:43] LABS: AMPHET/METH SCREEN,URINE NEGATIVE (NEGATIVE); BARBITURATE SCREEN, URINE NEGATIVE (NEGATIVE); BENZODIAZEPINES SCREEN,URINE NEGATIVE (NEGATIVE); CANNABINOID SCREEN,URINE NEGATIVE (NEGATIVE); COCAINE SCREEN,URINE NEGATIVE (NEGATIVE); OPIATE SCREEN,URINE NEGATIVE (NEGATIVE); PHENCYCLIDINE SCREEN,URINE NEGATIVE (NEGATIVE)
[2021-06-02 14:48] LABS: BACTERIA,URINE None Seen /HPF (None Seen); MUCUS,URINE Few LPF (None Seen); SQUAMOUS EPITHELIAL CELL,UR Rare /HPF (0-2); WBC,URINE 0-1 /HPF (0-1)
[2021-06-02 14:58] VITALS: BP 135/67
[2021-06-02] MEDS ORDERED: ALPR0.25 PO (15:14)
== END 2021-06-02 17:35 | disposition home or self-care (01) ==
LOC: EDH 11:51
DX: G20 Parkinson's disease (principal); F02.80 Dementia in other diseases classified elsewhere, unspecified severity, without behavioral disturbance, psychotic disturbance, mood disturbance, and anxiety; F32.A Depression, unspecified; Z79.01 Long term (current) use of anticoagulants; Z79.82 Long term (current) use of aspirin; Z79.84 Long term (current) use of oral hypoglycemic drugs; Z79.899 Other long term (current) drug therapy
CPT/HCPCS: 36415; 71045; 80053; 80305; 81001; 82550; 85025; 93005; 99285; G0481